=== PATIENT | female | born 1980 | race American Indian/Alaskan Native ===

== ENCOUNTER 2016-09-24 14:42 | Inpatient (IN) | payer OTHER ==
[2016-09-24 15:56] LABS: Anion Gap 21 mmol/L; BUN/Creatinine Ratio 12.85; Blood Urea Nitrogen 9 mg/dL (7-17); Calcium 9.6 mg/dL (8.4-10.2); Carbon Dioxide 22 mmol/L (22-30); Chloride 101.7 mmol/L (98-107); Glucose 118 mg/dL (65-100); Potassium 4.5 mmol/L (3.6-5.0); Sodium 140 mmol/L (137-145)
[2016-09-24 16:02] LABS: Basophils % (Auto) 0.5 % (0.0-1.8); Eosinophils % (Auto) 0.1 % (0.0-4.3); Hematocrit 32.7 % (30.3-42.9); Hemoglobin 10.4 gm/dl (10.1-14.3); Mean Corpuscular HGB Conc 32 % (30-34); Platelet Count 526 K/mm3 (140-440); Red Blood Count 4.68 M/mm3 (3.65-5.03); White Blood Count 12.7 K/mm3 (4.5-11.0)
[2016-09-24 16:10] LABS: Mean Corpuscular Hemoglobin 22 pg (28-32); Mean Corpuscular Volume 70 fl (79-97)
[2016-09-24 17:08] LABS: Bacteria,Urine 1+ /HPF (Negative); Bilirubin,Urine NEG (Negative); Blood,Urine NEG (Negative); Ketones,Urine NEG (Negative); Leukocyte Esterase,Urine NEG (Negative); Mucus,Urine FEW /HPF; Nitrite,Urine NEG (Negative)
[2016-09-24] MEDS ORDERED: ZOFRAN IV ONE ×2 (17:23→20:18)
[2016-09-24] MEDS ORDERED: MORPHINE IV ONE (17:23)
[2016-09-24] MEDS ORDERED: NACL 0.9% 1000 ML 1,000 ML IV ONE ×2 (17:23→22:42)
--- NOTE | 2016-09-24 17:58 | Cat Scan Report ---
FINAL REPORT PROCEDURE: CT ABDOMEN PELVIS WO CON TECHNIQUE: Computerized axial tomography of the abdomen and pelvis was performed without intravenous contrast. This study is performed without intravascular contrast material and its sensitivity for abdominal and pelvic pathology, including neoplasms, inflammation, abscess, free fluid, thrombosis, arterial dissection and infarction, is reduced compared with a contrast enhanced study. HISTORY: pain COMPARISON: No prior studies are available for comparison. FINDINGS: Small hiatus hernia is seen. Liver and spleen appear normal. There is cholelithiasis without evidence of cholecystitis or biliary ductal dilation. Pancreas appears normal. The adrenal glands and abdominal aorta are normal in size. No renal abnormality is seen. Normal appendix is seen. Bladder appears normal. There is an exophytic fibroid in the left side of the body of the uterus measuring 3.7 cm in greatest dimension. Another probable degenerating exophytic fibroid is seen in the left side of the fundus measuring 3.2 cm in size. This 2nd area could possibly be a thick-walled cyst in the left ovary, though. No adnexal masses are seen. No evidence of bowel obstruction is seen. IMPRESSION: 3.7 cm exophytic calcified fibroid is seen associated with the anterior and left side of the lower uterus. In the left adnexal region adjacent to the uterus there is an 3.2 cm structure with low density centrally that could be a degenerating fibroid or a complex left ovarian cyst. Cholelithiasis is seen without evidence of cholecystitis.
--- NOTE | 2016-09-24 18:42 | Emergency Department Report ---
ED Abdominal Pain HPI - General Chief Complaint: Abdominal Pain Stated Complaint: GALLBLADDER PAIN/SENT BY PHYSICIAN Time Seen by Provider: 09/24/16 17:18 Source: patient Mode of arrival: Ambulatory Limitations: No Limitations - History of Present Illness Complaint: abdominal pain -: Gradual Location: RUQ Radiation: back Migration to: no migration Severity scale (0 -10): 10 Quality: stabbing Consistency: constant Improves With: nothing Worsens With: eating Context: sick contacts Associated Symptoms: nausea - Related Data Allergies Allergy/AdvReac Type Severity Reaction Status Date / Time No Known Allergies Allergy Unverified 09/24/16 15:10 ED Review of Systems ROS: Stated complaint: GALLBLADDER PAIN/SENT BY PHYSICIAN Other details as noted in HPI Comment: All other systems reviewed and negative Endocrine: no symptoms reported Gastrointestinal: abdominal pain, nausea ED Past Medical Hx - Past Medical History Previous Medical History?: Yes Additional medical history: hydronitis - Surgical History Past Surgical History?: No - Family History Family history: hypertension - Social History Smoking Status: Never Smoker Substance Use Type: None ED Physical Exam - General Limitations: No Limitations - Head Head exam: Present: atraumatic - Eye Eye exam: Present: normal appearance, PERRL - ENT ENT exam: Present: normal exam, normal orophraynx - Neck Neck exam: Present: normal inspection - Respiratory Respiratory exam: Present: normal lung sounds bilaterally - Cardiovascular Cardiovascular Exam: Present: regular rate - GI/Abdominal GI/Abdominal exam: Present: soft, tenderness - Neurological Exam Neurological exam: Present: alert, oriented X3 - Skin Skin exam: Present: warm, dry ED Course Vital Signs 09/24/16 09/24/16 09/24/16 15:05 18:22 19:05 Temperature 98.1 F Pulse Rate 96 H Respiratory 17 20 20 Rate Blood Pressure 107/69 Blood Pressure 107/69 [Left] O2 Sat by Pulse 98 100 Oximetry ED Medical Decision Making - Lab Data Result diagrams: 09/24/16 15:15 09/24/16 15:15 Critical care attestation.: If time is entered above; I have spent that time in minutes in the direct care of this critically ill patient, excluding procedure time. ED Disposition Clinical Impression: Right upper quadrant pain Disposition: OP ADMIT IP TO THIS HOSP Is pt being admited?: Yes Does the pt Need Aspirin: No Condition: Stable Instructions: Abdominal Pain (ED) Referrals: PRIMARY CARE, [Primary Care Provider] - 3-5 Days
[2016-09-24] MEDS ORDERED: DILAUDID IV ONE (20:17)
[2016-09-24] MEDS: MORPHINE IV PRN (23:40)
[2016-09-24] MEDS: ZOFRAN IV PRN (23:41)
--- NOTE | 2016-09-25 06:37 | History and Physical Report ---
History of Present Illness Date of examination: 09/25/16 Date of admission: 09/24/16 20:52 Chief complaint: Right upper quadrant abdominal pain - day History of present illness: Pt is a 36y/o female who has a history of hydroadenitis involving the axillae and groins who was stable and in apparent good health until yesterday when she started having severe right upper quadrant abdominal pain 8-10/10 non-radiating , associated with nausea and vomiting. Vomitus was non bilious. Denies any fever. Came to the ED where pt was found to have elevated wbc. CT of [facility] abdomen showed cholelithiasis but no gallbladders wall thickening. Pain continue despite iv morphine. Gall bladder dyskinasia suspected and pt was admitted for further eval and treatment. Past History Past Medical History: other (hydraadenitis) Past Surgical History: No surgical history Social history: denies: smoking, alcohol abuse, prescription drug abuse, IV drug use Family history: no significant family history Medications and Allergies Allergies Allergy/AdvReac Type Severity Reaction Status Date / Time No Known Allergies Allergy Verified 09/24/16 20:54 Active Meds: Active Medications Enoxaparin Sodium (Lovenox) 40 mg SUB-Q QDAY@2200 DEMETRIUS Sodium Chloride (Nacl 0.9% 1000 Ml) 1,000 mls @ 125 mls/hr IV ONCE ONE Stop: 09/25/16 06:41 Last Admin: 09/24/16 23:37 Dose: 125 mls/hr Morphine Sulfate (Morphine) 2 mg IV Q4H PRN PRN Reason: Pain, Moderate (4-6) Last Admin: 09/24/16 23:40 Dose: 2 mg Ondansetron HCl (Zofran) 4 mg IV Q4H PRN PRN Reason: Nausea And Vomiting Last Admin: 09/24/16 23:41 Dose: 4 mg Review of Systems Constitutional: no weight loss, no weight gain, no fever, no chills Ears, nose, mouth and throat: no ear pain, no ear discharge, no decreased hearing, no epistaxis Cardiovascular: no chest pain, no orthopnea, no palpitations Respiratory: no cough, no cough with sputum Gastrointestinal: abdominal pain, nausea, vomiting, diarrhea, no BRBPR, no melena Integumentary: no rash, no pruritis Neurological: no head injury, no transient paralysis, no paralysis Psychiatric: no anxiety, no memory loss, no change in sleep habits, no sleep disturbances Endocrine: no cold intolerance, no heat intolerance, no polyphagia Hematologic/Lymphatic: no easy bruising, no easy bleeding Allergic/Immunologic: no urticaria Exam - Constitutional Vitals: Temp Pulse Resp BP Pulse Ox 98.2 F 80 18 91/54 98 09/25/16 04:55 09/25/16 04:55 09/25/16 04:55 09/25/16 04:55 09/25/16 04:55 General appearance: Present: no acute distress, well-nourished - EENT Eyes: Present: PERRL - Neck Neck: Present: supple, normal ROM - Respiratory Respiratory effort: normal Respiratory: bilateral: CTA - Cardiovascular Heart Sounds: Present: S1 & S2. Absent: rub, click - Extremities Extremities: pulses symmetrical Peripheral Pulses: within normal limits - Abdominal General gastrointestinal: Present: soft, tender, non-distended, normal bowel sounds - Integumentary Integumentary: Present: clear, warm, dry - Musculoskeletal Musculoskeletal: gait normal, strength equal bilaterally - Psychiatric Psychiatric: appropriate mood/affect, intact judgment & insight - Neurologic Neurologic: CNII-XII intact, moves all extremities Results - Labs CBC & Chem 7: 09/24/16 15:15 09/24/16 15:15 Assessment and Plan Assessment and plan 1. Right upper quadrant pain 2. Biliary dykinasia 3. Leukocytosi 4. Hydroadenitis Admit IV hydration, Zofran, Morphine, Levaquin HIDA scan Gen. surgical consult DVT Ppx with lovenox and GI with pepcid
--- NOTE | 2016-09-25 10:37 | Nuclear Medicine Report ---
Hepatobiliary scan: Examination performed with 5 mCi technetium 99m Choletec. History: Right upper quadrant pain. Findings: Uniform distribution of tracer is noted in aorta subsequent clearance into common bile duct and duodenum. No persistence of activity is noted in the liver at 2 hours. The gallbladder is not visualized throughout the study. Impression: Nonvisualized gallbladder with cystic duct obstruction. No obstruction to common bile duct.
[2016-09-25] MEDS: LEVAQUIN 750MG/150ML 750 MG/150 ML BAG IV SCH (11:17)
[2016-09-25] MEDS: PEPCID IV SCH (11:17)
[2016-09-25] MEDS: ZOFRAN IV PRN ×2 (11:34→21:10)
[2016-09-25] MEDS: MORPHINE IV PRN ×2 (11:35→20:52)
[2016-09-25 12:03] LABS: Basophils % (Auto) 0.6 % (0.0-1.8); Eosinophils % (Auto) 0.6 % (0.0-4.3); Hematocrit 30.6 % (30.3-42.9); Hemoglobin 9.8 gm/dl (10.1-14.3); Mean Corpuscular HGB Conc 32 % (30-34); Platelet Count 471 K/mm3 (140-440); Red Blood Count 4.44 M/mm3 (3.65-5.03); Red Cell Distribution Width 18.8 % (13.2-15.2); White Blood Count 13.9 K/mm3 (4.5-11.0)
[2016-09-25 12:05] LABS: Mean Corpuscular Hemoglobin 22 pg (28-32); Mean Corpuscular Volume 69 fl (79-97)
[2016-09-25 12:22] LABS: Alanine Aminotransferase 8 units/L (7-56); Albumin 3.4 g/dL (3.9-5); Albumin/Globulin Ratio 0.8 %; Alkaline Phosphatase 78 units/L (35-129); Anion Gap 18 mmol/L; BUN/Creatinine Ratio 11.25; Blood Urea Nitrogen 9 mg/dL (7-17); Calcium 8.6 mg/dL (8.4-10.2); Carbon Dioxide 23 mmol/L (22-30); Chloride 105.2 mmol/L (98-107); Cholesterol 138 mg/dL (50-199); Glucose 101 mg/dL (65-100); HDL Cholesterol 50 mg/dL (40-59); LDL Cholesterol,Direct 75 mg/dL (50-130); Potassium 4.1 mmol/L (3.6-5.0); Sodium 142 mmol/L (137-145); Total Protein 7.5 g/dL (6.3-8.2); Triglycerides 66 mg/dL (2-149)
[2016-09-25] MEDS ORDERED: ZOSYN/NS 4.5GM/100ML 100 ML IV SCH (16:00)
--- NOTE | 2016-09-25 16:09 | Event Note ---
Date: 09/25/16 36 year old female with acute RUQ pain, normal LFTs, Hida reveals cystic duct obstruction, patient needs to be NPO, iv zosyn, pain control, iv fluids, lap cholecystectomy in am.
[2016-09-25] MEDS ORDERED: D5/0.45NS 1,000 ML IV SCH (18:00)
[2016-09-25] MEDS: ZOSYN/NS 4.5GM/100ML 4.5 GM/100 ML VIAL IV SCH (21:10)
[2016-09-25] MEDS ORDERED: LOVENOX SUB-Q SCH (22:00)
[2016-09-26] MEDS: MORPHINE IV PRN (04:43)
[2016-09-26] MEDS: ZOFRAN IV PRN ×2 (04:43→15:02)
[2016-09-26] MEDS: ZOSYN/NS 4.5GM/100ML 4.5 GM/100 ML VIAL IV SCH ×3 (05:56→22:24)
[2016-09-26 06:06] LABS: Basophils % (Auto) 0.5 % (0.0-1.8); Eosinophils % (Auto) 0.5 % (0.0-4.3); Hemoglobin 9.3 gm/dl (10.1-14.3); Mean Corpuscular HGB Conc 32 % (30-34); Platelet Count 441 K/mm3 (140-440); Red Cell Distribution Width 18.9 % (13.2-15.2); White Blood Count 14.7 K/mm3 (4.5-11.0)
[2016-09-26 06:08] LABS: Mean Corpuscular Hemoglobin 22 pg (28-32); Mean Corpuscular Volume 69 fl (79-97)
[2016-09-26 06:28] LABS: Alanine Aminotransferase 9 units/L (7-56); Albumin/Globulin Ratio 0.7 %; Alkaline Phosphatase 76 units/L (35-129); Anion Gap 17 mmol/L; Blood Urea Nitrogen 8 mg/dL (7-17); Calcium 8.5 mg/dL (8.4-10.2); Carbon Dioxide 23 mmol/L (22-30); Chloride 103.9 mmol/L (98-107); Glucose 110 mg/dL (65-100); Potassium 3.7 mmol/L (3.6-5.0); Sodium 140 mmol/L (137-145); Total Protein 7.3 g/dL (6.3-8.2)
--- NOTE | 2016-09-26 09:23 | Progress Note ---
Assessment and Plan Assessment and plan 1. Right upper quadrant pain from #2 2. Cystic bile duct obstruction per HIDA scan 3. Leukocytosis 4. Hydroadenitis Admit IV hydration, Zofran, Morphine, Zosyn HIDA scan showed cystic duct obstruction For Lap Beth per Surgeon Subjective Date of service: 09/26/16 Principal diagnosis: Abdominal pain from cystic duct obstruction Interval history: Still having abdominal pain Objective - Constitutional Vitals: Vital Signs - 12hr 09/26/16 09/26/16 09/26/16 01:35 04:25 08:01 Temperature 98.5 F 98.6 F Pulse Rate 82 Pulse Rate [ 93 H 87 Right Radial] Respiratory 18 18 Rate Blood Pressure 120/60 107/67 [Right Arm] O2 Sat by Pulse 99 100 Oximetry 09/26/16 08:40 Temperature 98.3 F Pulse Rate Pulse Rate [ 95 H Right Radial] Respiratory 20 Rate Blood Pressure 116/67 [Right Arm] O2 Sat by Pulse 100 Oximetry General appearance: Present: no acute distress, well-nourished - EENT Eyes: PERRL, EOM intact - Neck Neck: supple, normal ROM - Respiratory Respiratory effort: normal Respiratory: bilateral: CTA - Cardiovascular Rhythm: regular Heart Sounds: Present: S1 & S2. Absent: gallop, rub Extremities: pulses intact, No edema, normal color, Full ROM - Gastrointestinal General gastrointestinal: Present: soft, tender, non-distended, normal bowel sounds - Integumentary Integumentary: clear, warm, dry - Musculoskeletal Musculoskeletal: 1, strength equal bilaterally - Neurologic Neurologic: moves all extremities - Psychiatric Psychiatric: memory intact, appropriate mood/affect, intact judgment & insight - Labs CBC & Chem 7: 09/26/16 05:11 09/26/16 05:11 Labs: Abnormal lab results 09/25/16 09/25/16 09/26/16 Range/Units 11:44 11:44 05:11 WBC 13.9 H 14.7 H (4.5-11.0) K/mm3 Hgb 9.8 L 9.3 L (10.1-14.3) gm/dl Hct 29.0 L (30.3-42.9) % MCV 69 L 69 L (79-97) fl MCH 22 L 22 L (28-32) pg RDW 18.8 H 18.9 H (13.2-15.2) % Plt Count 471 H 441 H (140-440) K/mm3 Lymph % (Auto) 10.0 L 8.9 L (13.4-35.0) % [place] # 1.0 H (0.0-0.8) K/mm3 Seg Neutrophils % 83.7 H 83.6 H (40.0-70.0) % Seg Neutrophils # 11.6 H 12.3 H (1.8-7.7) K/mm3 Glucose 101 H (65-100) mg/dL Albumin 3.4 L (3.9-5) g/dL 09/26/16 Range/Units 05:11 WBC (4.5-11.0) K/mm3 Hgb (10.1-14.3) gm/dl Hct (30.3-42.9) % MCV (79-97) fl MCH (28-32) pg RDW (13.2-15.2) % Plt Count (140-440) K/mm3 Lymph % (Auto) (13.4-35.0) % [place] # (0.0-0.8) K/mm3 Seg Neutrophils % (40.0-70.0) % Seg Neutrophils # (1.8-7.7) K/mm3 Glucose 110 H (65-100) mg/dL Albumin 3.0 L (3.9-5) g/dL
[2016-09-26] MEDS ORDERED: ZOFRAN ONE (09:35)
[2016-09-26] MEDS ORDERED: NEOSTIGMINE ONE (09:35)
[2016-09-26] MEDS ORDERED: XYLOCAINE MPF 2% ONE (09:35)
[2016-09-26] MEDS ORDERED: ZEMURON IV ONE (09:35)
[2016-09-26] MEDS ORDERED: DECADRON ONE (09:35)
[2016-09-26] MEDS ORDERED: ROBINUL ONE ×2 (09:35)
[2016-09-26] MEDS ORDERED: DIPRIVAN 10 MG/ML IV ONE (09:36)
[2016-09-26] MEDS ORDERED: SUBLIMAZE ONE ×2 (09:36→12:51)
--- NOTE | 2016-09-26 10:50 | Anesthesia Day of Surgery ---
Anesthesia Day of Surgery - Day of Surgery Patient Examined: Yes Patient H&P Reviewed: Yes Patient is NPO: Yes
--- NOTE | 2016-09-26 10:50 | Anesthesia Consultation ---
Anesthesia Consult and Med Hx Date of service: 09/26/16 - Airway Anesthetic Teeth Evaluation: Good (gap teeth, front.) ROM Head & Neck: Adequate Mental/Hyoid Distance: Adequate Mallampati Class: Class II Intubation Access Assessment: Probably Good - Pulmonary Exam CTA: Yes - Cardiac Exam Cardiac Exam: RRR - Pre-Operative Health Status ASA Pre-Surgery Classification: ASA2 - Pulmonary Hx Pneumonia: No - Gastrointestinal Hx Gastroesophageal Reflux Disease: Yes (with food) - Other Systems Hx Obesity: Yes
[2016-09-26] MEDS ORDERED: PEPCID IV NR (11:21)
[2016-09-26] MEDS ORDERED: VERSED IV NR (11:22)
[2016-09-26] MEDS: NACL 0.9% 1000 ML 1,000 ML IV SCH ×2 (11:40→16:30)
[2016-09-26] MEDS ORDERED: XYLOCAINE 1% 20 mL ONE (11:49)
[2016-09-26] MEDS ORDERED: MARCAINE 0.5% 30 ML INFILTRATI ONE (11:49)
[2016-09-26] MEDS: LEVAQUIN 750MG/150ML 750 MG/150 ML BAG IV SCH (12:05)
[2016-09-26] MEDS: PEPCID IV SCH (12:10)
[2016-09-26] MEDS ORDERED: NACL 0.9% IR ONE ×3 (12:12)
[2016-09-26] MEDS ORDERED: MARCAINE 0.5% INFILTRATI ONE ×2 (12:12)
[2016-09-26] MEDS ORDERED: XYLOCAINE 1% 20 mL INFILTRATI ONE ×2 (12:12)
[2016-09-26] MEDS ORDERED: DILAUDID ONE (12:47)
[2016-09-26] MEDS ORDERED: NEO SYNEPHRINE ONE (13:21)
[2016-09-26] MEDS ORDERED: NACL 0.9% 100 ML ONE (13:21)
--- NOTE | 2016-09-26 13:32 | Admit Criteria Form ---
Admission Criteria Documentation: GALLBLADDER OR BILE DUCT INFLAMMATION OR STONE Clinical Indications for Admission to Inpatient Care ( Place 'X' for any and all applicable criteria): Admission is indicated for patients with ANY ONE of the following(1)(2)(3)(4)(5) : [ ]I. Acute cholecystitis as indicated by ALL of the following: [ ]a) Right upper quadrant pain, mass, or tenderness [ ]b) Systemic signs of inflammation indicated by ANY ONE of the following: [ ]i) Fever [ ]ii) C-reactive protein level greater than 10 mg/L (95 nmol/L) [ ]iii) White blood cell count greater than 10,000/mm3 (10 x109/L) or less than 4000/mm3 (4 x109/L) [X]II. Inpatient admission required rather than observation care (Also use Gallbladder or Bile Duct Inflammation or Stone: Observation Care as appropriate) because of ANY ONE of the following: [ ]a) Common bile duct obstruction diagnosed [ ]b) Vomiting that is severe or persistent [X]c) Severe pain requiring acute inpatient management [ ]d) Signs of intestinal obstruction or peritonitis [A] [ ]e) Severe electrolyte abnormalities requiring inpatient care [ ]f) Absent bowel sounds with complete ileus(8) [ ]g) Hemodynamic instability [ ]h) High fever or infection requiring inpatient admission as indicated by ANY ONE of the following (9): [ ]1) Appropriate outpatient or observation care antimicrobial Treatment. unavailable, not effective, or not feasible [ ]2) Temperature greater than 104.9 degrees F (40.5 degrees C) (oral) [ ]3) Temperature greater than 103.1 degrees F (39.5 degrees C) (oral) or less than 96.8 degrees F (36 degrees C) (rectal) that does not respond to all emergency treatment measures [ ]4) Documented bacteremia [ ]i) IV fluid to replace significant ongoing losses (greater than 3 L/m2 per day) [ ]j) Percutaneous or open drainage (eg, abscess, biliary tract) procedures [ ]k) Immediate inpatient surgery [ ]l) Other condition, treatment or monitoring requiring inpatient admission [ ]III. Acute cholangitis as indicated by ALL of the following(9)(10): [ ]a) Systemic signs of inflammation indicated by ANY ONE of the following: [ ]i) Fever [ ]ii) C-reactive protein level greater than 10 mg/L (95 nmol /L) [ ]iii) White blood cell count greater than 10,000/mm3 (10 x109/L) or less than 4000/mm3 (4 x109/L) [ ]b) Evidence of common bile duct disease indicated by ANY ONE of the following: [ ]i) Total serum bilirubin level greater than or equal to 2 mg/dL (34 micromoles/L) [ ]ii) Liver function test (alkaline phosphatase (ALP), r- glutamyltransferase (GGT), aspartate aminotransferase (AST), or alanine aminotransferase (ALT)) greater than 1.5 times the upper limit of normal[B] [ ]iii) Hepatobiliary imaging showing biliary dilatation or evidence of etiology (eg, stricture, stone, previously placed stent) Extended stay beyond goal length of stay may be needed for (1)(2)): [ ]a) Bacteremia or Hemodynamic instability [ ]b) Cholecystectomy [ ]c) Other surgical procedure(24) [ ]d) Percutaneous or endoscopic ultrasound-guided cholecystostomy The original [facility] content created by [facility] has been revised. The portions of the content which have been revised are identified through the use of italic text or in bold, and [facility] has neither reviewed nor approved the modified material. All other unmodified content is copyright [facility]. Please see references footnoted in the original [facility] edition 2016 Admission Criteria Met: Yes
[2016-09-26] MEDS ORDERED: TORADOL ONE (13:35)
[2016-09-26] MEDS ORDERED: ePHEDrine SULFATE ONE (13:36)
--- NOTE | 2016-09-26 13:57 | Post Operative Note ---
Pre-op diagnosis: acute cholecystitis Post-op diagnosis: other (gangrenous cholecystitis) Findings: gangrenous cholecystitis Procedure: laparoscopic cholecystectomy Anesthesia: BARNEY Surgeon: RAÚL CHANG Licensed Physical Therapist: MAREK NICHOLS Estimated blood loss: other (250cc) Specimen disposition: to lab Condition: stable Disposition: floor
--- NOTE | 2016-09-26 15:15 | Post Anesthesia Evaluation ---
- Post Anesthesia Evaluation Patient Participated: Yes Airway Patent: Yes Stable Respiratory Function: Yes Nausea/Vomiting: No Temp > 96.8F: Yes Pain Manageable: Yes Adequeate Hydration: Yes Anesthesia Complications: No Block Receding Appropriately: Not Applicable Patient on Ventilator: No
--- NOTE | 2016-09-27 00:17 | Operative Report ---
PREOPERATIVE DIAGNOSIS: Acute cholecystitis. POSTOPERATIVE DIAGNOSIS: Acute gangrenous cholecystitis. OPERATIVE FINDINGS: Compatible with gangrenous cholecystitis. PROCEDURE: Laparoscopic cholecystectomy. ANESTHESIA: General. SURGEON: Wilmer Fitzgerald MD. BEVEL OPERATOR: Carmen Gold MD. ESTIMATED BLOOD LOSS: 250 mL. SPECIMEN: Sent to lab. CONDITION: Stable. DISPOSITION: To the floor. DESCRIPTION OF PROCEDURE: After informed consent, the patient was brought to the operating room, induced under general anesthesia. She was already on IV antibiotics and had compression stockings in place. She was sterilely prepped and draped for standard laparoscopic cholecystectomy. Ioban drape was used. A skin wheal was raised in the subumbilical position with 0.5% Marcaine mixed with 1% lidocaine. A small incision was made with 11 scalpel. The Veress needle was introduced, tested and found to be satisfactorily placed and intra-abdominal cavity was insufflated to acceptable parameters with CO2. Veress needle was removed and under direct visualization with a 0 degree 5 mm camera, a 5 mm port was placed. All the other ports were performed under direct visualization with the laparoscope. In a like fashion, a 10 mm port was placed in the subxiphoid position, two 5 mm ports in the midclavicular and mid axillary line. The patient was then positioned properly. Then, findings were compatible with acute gangrenous cholecystitis. The gallbladder was aspirated with the 60 mL syringe taking the tension off the wall. Traction was placed in the apex of the body of the gallbladder in a cephalad direction over the liver. Lateral traction was placed on the infundibulum. Utilizing a Kitner dissector, I dissected out and identified the lymph node of Calot, cystic duct, cystic artery, common hepatic, and common bile duct. Therefore, the critical view of Strasberg or the triangle of safety was demonstrated. Clips were placed on the cystic duct proximally and distally and it was cut. Clips were placed on the cystic artery proximally and distally and it was cut and the gallbladder was taken out retrograde with a J-hook and removed in a gallbladder bag. Abdomen was washed out with a Nezhad irrigation system and the hemostasis was fairly good. Some James was placed in the gallbladder fossa after the washout and then the ports were withdrawn under direct visualization with the laparoscope. There was no bleeding from the anterior abdominal wall. All the CO2 was allowed to egress from the abdomen. The subxiphoid port site was closed with interrupted 0 Vicryls on a UR-6 needle and 4-0 Monocryl was used for the skin and 0.5% Marcaine and 1% lidocaine were instilled to the incision for pain control. The patient tolerated the procedure well and was transferred to recovery room in stable condition. Sponge and needle count was correct x2. JOB# [id number] RYAN/GERTRUDIS
[2016-09-27] MEDS: ZOSYN/NS 4.5GM/100ML 4.5 GM/100 ML VIAL IV SCH (02:00)
[2016-09-27] MEDS: PERCOCET 5/325 PO PRN ×2 (02:30→11:33)
[2016-09-27 06:14] LABS: Basophils % (Auto) 0.2 % (0.0-1.8); Hematocrit 26.9 % (30.3-42.9); Hemoglobin 8.6 gm/dl (10.1-14.3); Mean Corpuscular HGB Conc 32 % (30-34); Platelet Count 395 K/mm3 (140-440); Red Blood Count 3.84 M/mm3 (3.65-5.03); White Blood Count 16.7 K/mm3 (4.5-11.0)
[2016-09-27 06:15] LABS: Mean Corpuscular Hemoglobin 22 pg (28-32); Mean Corpuscular Volume 70 fl (79-97)
[2016-09-27 06:32] LABS: Alanine Aminotransferase 22 units/L (7-56); Albumin 2.9 g/dL (3.9-5); Albumin/Globulin Ratio 0.7 %; Alkaline Phosphatase 80 units/L (35-129); Anion Gap 15 mmol/L; BUN/Creatinine Ratio 11.25; Blood Urea Nitrogen 9 mg/dL (7-17); Calcium 8.2 mg/dL (8.4-10.2); Carbon Dioxide 24 mmol/L (22-30); Chloride 103.8 mmol/L (98-107); Glucose 104 mg/dL (65-100); Potassium 4.2 mmol/L (3.6-5.0); Sodium 139 mmol/L (137-145)
--- NOTE | 2016-09-27 07:13 | Event Note ---
Date: 09/27/16 POD 1 s/p lap cholecystectomy for gangrenous cholecystitis, VSS Afebrile, CBC, WBC 16 K ( patient has established Hidradenitis of both groins, which is chronic and present prior to surgery- I believe this in part explains her WBC) , her H and HCT are stable and there is no evidence of post op intra-abdominal bleeding. Her Liver function tests are normal. She can be advanced to a Regular diet and discharged home on Cipro and Flagyll x 5 days, along with oral pain meds, I can see her in my office in one week for follow up.
--- NOTE | 2016-09-27 09:36 | Discharge Summary ---
Providers - Providers Date of Admission: 09/24/16 20:52 Date of discharge: 09/27/16 Attending physician: VU VAUGHN 09/25/16 01:50 Consult to Physician [CONS] Routine Consulting Provider: RAÚL FITZGERALD Reason For Exam: GENERAL SURGERY Place consult to:: Dr Fitzgerald Notified:: yes Was contact made?: Yes Comment:: DR VAUGHN SPOKE TO Dr FITZGERALD Primary care physician: [employer] Hospitalization Reason for admission: Abdominal pain from acute cholecyctitis Condition: Stable Pertinent studies: Ct abdomen and HIDA scan Procedures: Lap cholecyctectomy Hospital course: Pt is a 36 y/o lady who has a history of Hidradenitis with active lesion in the armpits, presented to the Ed on account of severe acute RUQ abdominal pain. CT of the abdomen on presentation to the ER showed cholelitiasis but no cholecystitis. Pt was commence on Zosyn, morphin and iv hydration. Pt was still in severe abdominal pain aggravated by eating. Had nausea and vomiting. HIBA scan showed obstructed cytic duct. Surgical consult was obtained. Lap colecytectomy was done. Acute gangrenous gallbaldder was identified. Had mild leukocytosis that was though to be secondary to Hydrademitis. Abdominal pain resolved. Discharged on cipro and flagy per surgon. to f/u with PCP in 3-5 days and Surgon in one week Disposition: DC-01 TO HOME OR SELFCARE Core Measure Documentation - Palliative Care Palliative Care/ Comfort Measures: Not Applicable - Core Measures Any of the following diagnoses?: none Exam - Constitutional Vitals: Temp Pulse Resp BP Pulse Ox 98.0 F 79 20 116/74 100 09/27/16 09:10 09/27/16 09:10 09/27/16 09:10 09/27/16 09:10 09/27/16 09:10 General appearance: Present: no acute distress, well-nourished - EENT Eyes: Present: PERRL - Neck Neck: Present: supple, normal ROM - Respiratory Respiratory effort: normal Respiratory: bilateral: CTA - Cardiovascular Heart Sounds: Present: S1 & S2. Absent: rub, click - Extremities Extremities: pulses symmetrical, No edema Peripheral Pulses: within normal limits - Abdominal General gastrointestinal: Present: soft, non-tender, non-distended, normal bowel sounds Female genitourinary: Present: normal - Integumentary Integumentary: Present: clear, warm, dry - Musculoskeletal Musculoskeletal: gait normal, strength equal bilaterally - Psychiatric Psychiatric: appropriate mood/affect, intact judgment & insight - Neurologic Neurologic: CNII-XII intact, moves all extremities Plan Activity: advance as tolerated Weight Bearing Status: Weight Bear as Tolerated Diet: regular Follow up with: PRIMARY CARE, [Primary Care Provider] - 3-5 Days Prescriptions: Ciprofloxacin HCl [Ciprofloxacin TAB] 500 mg PO BID #30 tablet metroNIDAZOLE [Flagyl TAB] 500 mg PO Q8HR #30 tablet oxyCODONE /ACETAMINOPHEN [Percocet 5/325 mg] 1 tab PO Q4H PRN #30 tablet PRN Reason: Pain, Moderate (4-6)
[2016-09-27] MEDS ORDERED: LEVAQUIN PO SCH (10:00)
[2016-09-27] MEDS ORDERED: ZOSYN/NS 4.5GM/100ML 4.5 GM/100 ML VIAL IV SCH (10:00)
[2016-09-27] MEDS ORDERED: FLAGYL PO SCH (14:00)
[2016-09-27 17:58] VITALS: BP 124/78
== END 2016-09-27 19:16 | disposition home or self-care (01) | DRG 418 ==
LOC: ED 14:42 → 4A 20:52
PROVIDERS: ADMIT Family Medicine; ATTEND Family Medicine
PROC: 0FT44ZZ Resection of Gallbladder, Percutaneous Endoscopic Approach (ICD-10-PCS; principal; 2016-09-26)
DX: K80.13 Calculus of gallbladder with acute and chronic cholecystitis with obstruction (principal); Z68.41 Body mass index [BMI] 40.0-44.9, adult; K83.9 Disease of biliary tract, unspecified; D72.829 Elevated white blood cell count, unspecified; L73.2 Hidradenitis suppurativa; Z82.49 Family history of ischemic heart disease and other diseases of the circulatory system; K21.9 Gastro-esophageal reflux disease without esophagitis; E66.9 Obesity, unspecified
CPT/HCPCS: 36415; 74176; 78226; 80048; 80053; 80061; 81001; 81025; 85025; 88304; 96361; 96374; 96375; 96376; A4217; A9537; J1100; J1170; J1885; J1956; J2250; J2270; J2370; J2405; J2543; J2704; J2710; J3010; J7030